=== PATIENT | female | born 1975 | race Caucasian/White ===

== ENCOUNTER 2020-05-20 11:55 | Day surgery (SDC) | payer BC ==
[~2020-05-20] VITALS: Ht 162.6 cm; Wt 87.0 kg
[~2020-05-20 11:55] MED LIST: CYCLOBENZAPRINE10 MG PO; DOXEPIN HCL100 MG PO; DOXEPIN HCL25 MG; FLUOXETINE HCL60 MG PO; REGLAN10 MG PO
--- NOTE | 2020-05-20 14:50 | NUR ---
05/20/20 1450 Amanda Valencia 1435- PT TO PACU IN LL POSITION. EYES CLOSED. PT RESPONDS TO VERBAL STIMULI. ASKING AND ANSWERING QUESTIONS APPROPRIATELY. BREATHING EASY AND UNLABORED. SPO2 >95% ON 3 L O2 VIA NC. O2 TITRATED DOWN TO ROOM AIR. PATIENT COMPLAINS OF ADBOMINAL PAIN "6" AND STATES IT IS SIMILAR TO HER PRE OP PAIN. 1445- PT TALKING APPROPRIATELY WITH MD AT BEDSIDE. VSS. SPO2 >95% ON ROOM AIR. HOB ELEVATED. DENIES NAUSEA OR DIZZINESS. BREATHING EASY AND UNLABORED.
--- NOTE | 2020-05-21 11:11 | PATH ---
[facility] [address] [place], [place] [address] Signed SPECIMEN(S): A DUODENUM SPECIMEN(S): B ANTRUM SPECIMEN(S): C DISTAL ESOPHAGUS SPECIMEN(S): D MID ESOPHAGUS SPECIMEN SOURCE: A. DUODENUM B. ANTRUM C. DISTAL ESOPHAGUS D. MID ESOPHAGUS CLINICAL HISTORY: Dyspepsia, epigastric pain. Normal exam. MICROSCOPIC DESCRIPTION: Histologic sections of all submitted blocks are examined by light microscopy. These findings, together with the gross examination, support the pathologic diagnosis. FINAL PATHOLOGIC DIAGNOSIS: A. Duodenum, biopsy: - Duodenal mucosa with no histopathologic abnormality. - Negative for dysplasia or malignancy. B. Stomach, antrum, biopsy: - Antral mucosa with reactive gastropathy. - Negative for Helicobacter organisms on HE stain. - Negative for dysplasia or malignancy. C. Esophagus, distal, biopsy: - Squamocolumnar junctional mucosa with mild chronic inflammation and reactive changes. - Negative for intestinal metaplasia, dysplasia, or malignancy. D. Esophagus, mid, biopsy: - Squamocolumnar junctional mucosa with mild chronic inflammation and reactive changes. - Negative for intestinal metaplasia, dysplasia, or malignancy. NAL:cml:C2NR GROSS DESCRIPTION: Four specimens are received in four containers, labeled "CG." A. The specimen, labeled "CG," and designated on the requisition "duodenal biopsy," is received in formalin and consists of two fragments of pink-youngblood tissue (0.5 x 0.3 x 0.2 cm in aggregate). The PATIENT NAME: LINDA LARKIN PATHOLOGY DATE OF : 71 REPORT #: [id number] PHYSICIAN: JIMENA LIRIANO PCP: ANTHONY BROWN PAC REPORT IS CONFIDENTIAL AND NOT TO BE RELEASED WITHOUT AUTHORIZATION [facility] [address] [place], [place] [address] Signed specimen is submitted entirely in cassette A1. B. The specimen, labeled "CG," and designated on the requisition "antrum biopsies," is received in formalin and consists of two fragments of pink-youngblood tissue (0.5 x 0.2 x 0.2 cm in aggregate). The specimen is submitted entirely in cassette B1. C. The specimen, labeled "CG," and designated on the requisition "distal esophagus," is received in formalin and consists of two fragments of white-youngblood tissue (0.5 x 0.4 x 0.2 cm in aggregate). The specimen is submitted entirely in cassette C1. D. The specimen, labeled "CG," and designated on the requisition "mid esophagus," is received in formalin and consists of multiple fragments of white-youngblood tissue (0.5 x 0.4 x 0.2 cm in aggregate). The specimen is submitted entirely in cassette D1. AC (under the direct supervision of a pathologist) The Gross Description was prepared using a voice recognition system. The report was reviewed for accuracy; however, sound-alike word errors, addition and/or deletions may occur. If there is any question about this report, please contact Client Services. PERFORMING LABORATORY: The technical component was performed by [facility], [address] [place] [id number] (Sales And Marketing Administrator: Giulia Tan MD; CLIA# [id number]). [facility], [address] [place] [address] [place], [place] [address] (IA# [id number]). Diagnostician: Jaci Sierra MD Pathologist Electronically Signed 05/21/2020 Copies: ~ PATIENT NAME: LINDA LARKIN PATHOLOGY DATE OF : 71 REPORT #: [id number] PHYSICIAN: JIMENA LIRIANO PCP: ANTHONY BROWN PAC REPORT IS CONFIDENTIAL AND NOT TO BE RELEASED WITHOUT AUTHORIZATION
--- NOTE | 2020-05-21 12:08 | OR ---
[facility] [address] [place], [place] [address] Signed DATE OF OPERATION: 05/20/2020 SURGEON: Ester Chang MD DATE OF PROCEDURE: 05/20/2020 PREOPERATIVE DIAGNOSIS: Persistent epigastric pain, episodic dysphagia. POSTOPERATIVE DIAGNOSIS: Normal-appearing esophagus and GE junction, mild fundic gastritis without ulceration. PROCEDURE: Esophagogastroduodenoscopy with biopsy. ANESTHESIA: Intravenous sedation, fentanyl 100 mcg, and Versed 5 mg. INDICATION: This 44-year-old obese white woman is known to me from the past having undergone appendectomy and cholecystectomy. She is a patient of [facility]BR[facility] Starks, and complains of persistent epigastric pain and decreased appetite. She occasionally has regurgitation of fluid and sometimes a small amount of blood. She has mild dysphagia. The patient says she underwent surgery at [facility] in September 2017 for a "mass." This sounded like a GE junction lesion of some sort. Once excised, she was told that it was malignant, but that everything was removed. She has had no problems since that time until recently. She is admitted to undergo upper endoscopy to better characterize the problem and understand the risks of bleeding, infection, perforation, and so on. FINDINGS: There is no mass at the GE junction. There is no Vieira epithelium either. The esophagus itself appeared normal. The stomach did have mild gastritis of the body of the stomach, but no severe ulceration, erosion, or other problem. The pylorus was normal as was the duodenum. CLOtest was -20 minutes post procedure. PROCEDURE IN DETAIL: The patient was brought to the endoscopy suite and given topical hypopharyngeal Electronically Signed By: ESTER CHANG MD 05/21/20 1208 PATIENT NAME: LINDA LARKIN OPERATIVE REPORT DATE OF : 71 REPORT #: [id number] PHYSICIAN: ESTER CHANG MD PCP: ANTHONY BROWN PAC REPORT IS CONFIDENTIAL AND NOT TO BE RELEASED WITHOUT AUTHORIZATION [facility] [address] [place], [place] [address] Signed anesthesia, and in the lateral decubitus position, given intravenous sedation to the point of slurred speech and nystagmus. Full cardiopulmonary monitoring was maintained. A bite block was placed. Olympus video upper endoscope was passed by hypopharynx. Vocal cords appeared normal. Scope was advanced to the esophagus without problem throughout its length. It was normal. The scope was then passed to the stomach, which was insufflated with air. There was a small amount of bile within the stomach, but not much. Rugal folds appeared normal as did the antrum and motility. Pylorus was normal. Scope was passed through it into the duodenum, which was normal. Biopsies were taken of the 2nd and 3rd portions. The scope was withdrawn and biopsies then taken of the antrum for both MEGAN and pathologic testing. Retroflex view undertaken showed a very good flap valve. No sign of hiatal hernia. No GE junction neoplasm or ulceration. Scope was withdrawn through the distal esophagus where multiple biopsies were obtained and withdrawn to the mid esophagus where additional biopsies were performed. The scope was removed. The patient was taken to the recovery room in good condition. CONCLUDING DIAGNOSIS: Very subtle changes of gastritis of the body of the stomach. PLAN: Instead of PPI medication, we will prescribe Carafate 1 g p.o. q.i.d. on empty stomach. We will have her avoid any smoking. We will see her back in the office in a few weeks and review her progress. Ester Chang MD JM/MODL /[id number] cc: Anthony Brown PA-C Copies: Electronically Signed By: ESTER CHANG MD 05/21/20 1208 PATIENT NAME: LINDA LARKIN OPERATIVE REPORT DATE OF : 71 REPORT #: [id number] PHYSICIAN: ESTER CHANG MD PCP: ANTHONY BROWN PAC REPORT IS CONFIDENTIAL AND NOT TO BE RELEASED WITHOUT AUTHORIZATION [facility] [address] [place] [id number] Signed ~ Electronically Signed By: ESTER CHANG MD 05/21/20 1208 PATIENT NAME: LINDA LARKIN OPERATIVE REPORT DATE OF : 71 REPORT #: [id number] PHYSICIAN: ESTER CHANG MD PCP: ANTHONY BROWN PAC REPORT IS CONFIDENTIAL AND NOT TO BE RELEASED WITHOUT AUTHORIZATION
== END 2020-05-20 15:20 | disposition home or self-care (01) ==
LOC: OPS 11:55 → DS 11:55 → OPS 14:00
PROVIDERS: ATTEND Surgery
PROC: 0DB78ZX Excision of Stomach, Pylorus, Via Natural or Artificial Opening Endoscopic, Diagnostic (ICD-10-PCS; 2020-05-20)
PROC: 0DB28ZX Excision of Middle Esophagus, Via Natural or Artificial Opening Endoscopic, Diagnostic (ICD-10-PCS; 2020-05-20)
PROC: 0DB38ZX Excision of Lower Esophagus, Via Natural or Artificial Opening Endoscopic, Diagnostic (ICD-10-PCS; 2020-05-20)
PROC: 0DB98ZX Excision of Duodenum, Via Natural or Artificial Opening Endoscopic, Diagnostic (ICD-10-PCS; principal; 2020-05-20 14:00)
DX: K20.90 Esophagitis, unspecified without bleeding (principal); K31.9 Disease of stomach and duodenum, unspecified; F32.9 Major depressive disorder, single episode, unspecified; J45.909 Unspecified asthma, uncomplicated; F17.200 Nicotine dependence, unspecified, uncomplicated; Z90.49 Acquired absence of other specified parts of digestive tract; Z88.6 Allergy status to analgesic agent; Z88.1 Allergy status to other antibiotic agents; Z88.5 Allergy status to narcotic agent; Z88.8 Allergy status to other drugs, medicaments and biological substances; Z79.899 Other long term (current) drug therapy
CPT/HCPCS: 99153; G0500; J2250; J3010; J7121

== ENCOUNTER 2020-06-20 14:33 | Emergency (ER) | payer OTHER, BC ==
[~2020-06-20] VITALS: Ht 162.6 cm; Wt 79.4 kg
[2020-06-20] MEDS ORDERED: PHENTERMINE H37.5 M1 PO (14:58)
[2020-06-20] MEDS ORDERED: SUMATRIPTAN SUC50 MG PO (14:59)
[2020-06-20] MEDS ORDERED: PROPRANOLOL HCL80 M1 PO (14:59)
[2020-06-20] MEDS ORDERED: VENTOLIN HFA18 GM INH (15:00)
[2020-06-20] MEDS ORDERED: SUCRALFATE1 GM PO (15:00)
== END 2020-06-20 17:23 | disposition home or self-care (01) ==
LOC: ED 14:33
DX: S60.453A Superficial foreign body of left middle finger, initial encounter (principal); W45.8XXA Other foreign body or object entering through skin, initial encounter; G43.909 Migraine, unspecified, not intractable, without status migrainosus; F17.200 Nicotine dependence, unspecified, uncomplicated; Z88.8 Allergy status to other drugs, medicaments and biological substances; Z88.5 Allergy status to narcotic agent; Z88.2 Allergy status to sulfonamides; Z88.1 Allergy status to other antibiotic agents; Z79.899 Other long term (current) drug therapy
CPT/HCPCS: 64450; 73140; 99283-25

== ENCOUNTER 2021-05-04 07:22 | Emergency (ER) | payer SELFPAY ==
[~2021-05-04] VITALS: Ht 162.6 cm; Wt 80.7 kg
[~2021-05-04 07:22] MED LIST changes: +PHENTERMINE H37.5 M1 PO; +PROPRANOLOL HCL80 M1 PO; +SUCRALFATE1 GM PO; +SUMATRIPTAN SUC50 MG PO; +VENTOLIN HFA18 GM INH
[2021-05-04] MEDS ORDERED: TYLENOL EXTRA500 MG PO (07:55)
[2021-05-04] MEDS ORDERED: IBUPROFEN200 M1 PO (07:56)
== END 2021-05-04 11:20 | disposition home or self-care (01) ==
LOC: ED 07:22
DX: U07.1 COVID-19 (principal); R59.0 Localized enlarged lymph nodes; G43.909 Migraine, unspecified, not intractable, without status migrainosus; F17.200 Nicotine dependence, unspecified, uncomplicated; Z88.5 Allergy status to narcotic agent; Z88.6 Allergy status to analgesic agent; Z88.2 Allergy status to sulfonamides; Z88.8 Allergy status to other drugs, medicaments and biological substances; Z79.899 Other long term (current) drug therapy
CPT/HCPCS: 71045; 80053; 85025; 96374; 99285-25; J1885; J7030; M0243; Q0244; U0003